=== PATIENT | male | born 1955 | race Caucasian/White ===

== ENCOUNTER → 2019-10-19 | Outpatient (CLI) | payer BC, MEDICARE, OTHER ==
[~2019-10-19] MED LIST: AMITRIPTYLINE H10 M1 PO; BYSTOLIC 5 MG5 M1 PO; CIALIS5 MG PO; GINSENG; GLUCOPHAGE1000 MG PO; L-ARGININE1000 MG PO; LEXAPRO 10 MG T10 M1 PER TUBE; LIPITOR40 MG PO; LISINOPRIL20 MG PO; NEXIUM40 MG PO; NIACIN 500 MG500 M1 PO; TESTOSTERONE INJ
== END ==
LOC: M.RAD 15:25
PROVIDERS: ATTEND Family Medicine
DX: J81.1 Chronic pulmonary edema (principal); J84.17 Other interstitial pulmonary diseases with fibrosis in diseases classified elsewhere